=== PATIENT | female | born 1975 | race Native Hawaiian/Other Pacific Islander ===

== ENCOUNTER 2017-04-10 16:04 | Emergency (ER) | payer OTHER ==
[~2017-04-10] VITALS: Ht 162.6 cm; Wt 54.4 kg
[2017-04-10 16:48] LABS: PLATELET COUNT 294 K/uL (152-353)
[2017-04-10 16:52] LABS: POTASSIUM 3.9 mmol/L (3.6-5.2); SODIUM 138 mmol/L (136-145)
[2017-04-10 19:45] VITALS: BP 11/79; TEMP 98.4
== END 2017-04-10 19:47 | disposition home or self-care (01) ==
LOC: ED 16:04
DX: R10.84 Generalized abdominal pain (principal); F10.10 Alcohol abuse, uncomplicated; K21.9 Gastro-esophageal reflux disease without esophagitis
CPT/HCPCS: 36415; 80053; 80307; 80320; 81000; 85027; 96374; 96375; 99284; G0479; J2405; J2550; J3411; Q9963

== ENCOUNTER 2021-08-08 12:46 | Emergency (ER) | payer OTHER ==
[~2021-08-08] VITALS: Ht 162.6 cm; Wt 46.3 kg
[2021-08-08 13:05] VITALS: BP 102/74; TEMP 98.8
[2021-08-08 14:28] LABS: PLATELET COUNT 387 K/uL (152-353)
[2021-08-08 14:37] LABS: POTASSIUM 4.5 mmol/L (3.6-5.2)
== END 2021-08-08 16:05 | disposition home or self-care (01) ==
LOC: ED 12:46
PROVIDERS: Hospitalist
DX: R10.84 Generalized abdominal pain (principal)
CPT/HCPCS: 80053; 81000; 85027; 96360; 96374; 99284; J1885; J2405